=== PATIENT | male | born 1955 | race African-American/Black ===

== ENCOUNTER 2018-04-16 10:23 | Emergency (ER) | payer MEDICARE, MEDICAID ==
[~2018-04-16] VITALS: Ht 167.6 cm; Wt 81.6 kg
[2018-04-16] MEDS ORDERED: LACTULOSE20 GM/301 ORAL (12:07)
[2018-04-16] MEDS ORDERED: DOCUSATE SODIU100 MG ORAL (12:07)
[2018-04-16] MEDS ORDERED: TAMSULOSIN HCL0.4 MG ORAL (12:07)
[2018-04-16] MEDS ORDERED: PHENOBARBITAL30 MG ORAL (12:07)
[2018-04-16] MEDS ORDERED: FEROSUL325 M1 PO (12:07)
[2018-04-16] MEDS ORDERED: HYDROCHLOROTHIA25 MG ORAL (12:07)
[2018-04-16] MEDS ORDERED: ATENOLOL25 MG ORAL (12:07)
[2018-04-16] MEDS ORDERED: REGULOID POWDE369 GM PO (12:07)
[2018-04-16] MEDS ORDERED: OYSTER SHELL C500 MG PO (12:07)
[2018-04-16] MEDS ORDERED: KEPPRA500 M4 ORAL (12:07)
[2018-04-16] MEDS ORDERED: LISINOPRIL10 MG ORAL (12:07)
[2018-04-16] MEDS ORDERED: DILANTIN100 MG ORAL (12:07)
[2018-04-16] MEDS ORDERED: SIMVASTATIN20 MG ORAL (12:08)
--- NOTE | 2018-04-16 12:34 | Diagnostic Imaging Report ---
Indication: Pain left wrist pain Findings: 3 views of the left wrist were obtained. No acute fractures, malalignment, erosions or periostitis are identified. Soft tissues are unremarkable. Impression: No acute findings.
--- NOTE | 2018-04-16 12:37 | Diagnostic Imaging Report ---
Indication: . Left hand pain Findings: 3 views of the left hand were obtained. Normal alignment is demonstrated. No acute fractures, erosions, or periosteal reaction are seen. Soft tissues are unremarkable. There is joint space narrowing and osteophyte formation involving the interphalangeal joints of the fingers. Impression: No acute findings. Degenerative arthritis
[2018-04-16 12:40] VITALS: BP 129/87
[2018-04-16] MEDS ORDERED: TYLENOL EXTRA500 MG ORAL (12:40)
[2018-04-16 12:57] VITALS: BP 129/87
--- NOTE | 2018-04-17 07:09 | Emergency Room Report ---
History of Present Illness General Chief Complaint: Multiple Trauma/Fall Source: Family Member Present Illness HPI 63-year-old male presents ED for evaluation left hand swelling 1 day. Family member at bedside states that patient tripped and fell landing on the left hand. No head injury or LOC. Patient presenting with left wrist swelling. Patient nonverbal at baseline. Does not appear to be in distress as per family. No fevers or chills. Denies any other injuries. No other aggravating relieving factors. Denies any other associated symptoms Allergies: Coded Allergies: No Known Allergies (Unverified , 04/16/18) Patient History Past Medical History: none Past Surgical History: none Pertinent Family History: none Social History: Denies: smoking, alcohol use, drug use Immunizations: UTD Reviewed Nursing Documentation: PMH: Agreed; PSxH: Agreed Nursing Documentation-PMH Past Medical History: No History, Except For Review of Systems All Other Systems: limited Physical Exam Vital Signs Date Time Temp Pulse Resp B/P (MAP) Pulse Ox O2 Delivery O2 Flow Rate FiO2 04/16/18 10:35 97.8 86 16 135/85 100 Room Air 97.9 Sp02 EP Interpretation: reviewed, normal General Appearance: no apparent distress, GCS 15, non-toxic, other - nonverbal Head: normocephalic Eyes: bilateral eye normal inspection, bilateral eye PERRL ENT: normal ENT inspection Neck: normal inspection Respiratory: normal inspection Cardiovascular #1: normal inspection Gastrointestinal: normal inspection Rectal: deferred Genitourinary: no CVA tenderness Musculoskeletal: swelling - L hand Neurologic: other - nonverbal Psychiatric: other - nonverbal Skin: normal inspection Lymphatic: normal inspection Procedures Splinting Splinting : Consent: Verbal Pre-Made Type: velcro Splint: wrist Pre-Proc Neuro Vasc Exam: normal Post-Proc Neuro Vasc Exam: normal Patient Tolerated: Well Complications: None Medical Decision Making Diagnostic Impression: Primary Impression: Hand injury Qualified Codes: S69.92XA - Unspecified injury of left wrist, hand and finger( s), initial encounter ER Course Hospital Course 63-year-old M presents to ED complaining of L hand swelling s/p trip and fall Differential diagnoses include: Fracture, dislocation, sprain, contusion Clinical course Patient placed on stretcher. After initial history and physical, I ordered xrays of L hand/wrist Xrays prelim read shows no acute fracture/dislocation. placed in wrist splint Likely contusion. Discussed findings with family member. Recommend ice, Tylenol. close followup with PMD. Safe for discharge Diagnosis - hand injury Stable and discharged to home with prescription for Tylenol. apply ice, keep elevated. weight bear as tolerated. Followup with PMD. Return to ED if symptoms recur or worsen Other X-Ray Diagnostic Results Other X-Ray Diagnostic Results #1: X-Ray ordered: L hand # of Views/Limited Vs Complete: 3 View Indication: Pain EP Interpretation: Yes Interpretation: no dislocation, no soft tissue swelling, no fractures Impression: No acute disease Electronically Signed by: Electronically signed by Kenneth Lau MD Other X-Ray Diagnostic Results #2: X-Ray ordered: L wrist # of Views/Limited Vs Complete: 2 View Indication: Pain EP Interpretation: Yes Interpretation: no dislocation, no soft tissue swelling, no fractures Impression: No acute disease Electronically Signed by: Electronically signed by Kenneth Lau MD Last Vital Signs Date Time Temp Pulse Resp B/P (MAP) Pulse Ox O2 Delivery O2 Flow Rate FiO2 04/16/18 12:57 97.9 88 16 129/87 98 Room Air 97.9 Status: improved Disposition: HOME, SELF-CARE Condition: Stable Scripts Acetaminophen* (TYLENOL EXTRA STRENGTH*) 500 Mg Tablet 500 MG ORAL Q8H PRN for Prn Headache/Temp > 101, #30 TAB 0 Refills Prov: Kenneth Lau MD 04/16/18 Referrals: NOT CHOSEN IPA/,REFERRING Departure Forms: Return to School Return to School On: Apr 17, 2018 School Release Restrictions: None Patient Instructions: Hand Contusion, [id number] Kenneth Lau MD Apr 17, 2018 07:09
== END 2018-04-16 12:57 | disposition home or self-care (01) ==
LOC: EMR 11:18
DX: S69.92XA Unspecified injury of left wrist, hand and finger(s), initial encounter (principal); W01.0XXA Fall on same level from slipping, tripping and stumbling without subsequent striking against object, initial encounter; Y93.9 Activity, unspecified; Y92.9 Unspecified place or not applicable
CPT/HCPCS: 99284

== ENCOUNTER 2018-04-19 12:25 | Emergency (ER) | payer MEDICARE, MEDICAID ==
[~2018-04-19] VITALS: Ht 154.9 cm; Wt 81.6 kg
[~2018-04-19 12:25] MED LIST: ATENOLOL25 MG ORAL; DILANTIN100 MG ORAL; DOCUSATE SODIU100 MG ORAL; FEROSUL325 M1 PO; HYDROCHLOROTHIA25 MG ORAL; KEPPRA500 M4 ORAL; LACTULOSE20 GM/301 ORAL; LISINOPRIL10 MG ORAL; OYSTER SHELL C500 MG PO; PHENOBARBITAL30 MG ORAL; REGULOID POWDE369 GM PO; SIMVASTATIN20 MG ORAL; TAMSULOSIN HCL0.4 MG ORAL; TYLENOL EXTRA500 MG ORAL
[2018-04-19 12:48] VITALS: BP 116/77
--- NOTE | 2018-04-19 13:23 | Emergency Room Report ---
History of Present Illness General Chief Complaint: Dyspnea/Respdistress Source: Caregiver Present Illness HPI Patient is a 63-year-old male brought in by caregiver after increased bruising to his left upper extremity and chest. Patient recent fall. Patient had recent imaging of his left hand which showed no evidence of fracture. The patient was noted to have been recently examined by his physician and was sent to the hospital for further evaluation and treatment. Allergies: Coded Allergies: No Known Allergies (Unverified , 04/19/18) Patient History Reviewed Nursing Documentation: PMH: Agreed; PSxH: Agreed Nursing Documentation-PMH Past Medical History: No History, Except For Hx Hypertension: Yes - High Cholesterol Review of Systems All Other Systems: limited - by mental status Physical Exam Vital Signs Date Time Temp Pulse Resp B/P (MAP) Pulse Ox O2 Delivery O2 Flow Rate FiO2 04/19/18 12:38 98.6 115 18 137/87 91 Room Air 98.6 General Appearance: no apparent distress, alert, Chronically Ill Head: normocephalic, atraumatic ENT: hearing grossly normal, normal voice Neck: supple, limited range of motion Respiratory: no respiratory distress, speaking full sentences Musculoskeletal: no calf tenderness Neurologic: alert, responsive, other - left hand swelling Psychiatric: mood/affect normal Skin: normal inspection, other - bruising to left chest wall and upper arm Medical Decision Making Diagnostic Impression: Primary Impression: Contusion, chest wall Additional Impression: Proximal humerus fracture ER Course Patient presented after a recent fall. Differential diagnosis included was not limited to fracture, pneumothorax, humerus fracture, head injury among others.Because of complexity of patient's case imaging studies were ordered. X-ray of the left humerus showed minimally displaced comminuted proximal humerus fracture. CT the chest read by radiology showed no evidence of acute fracture or pneumothorax. The patient was placed in a sling. He is given prescription for pain medications. His caregiver was advised to have the patient follow-up with orthopedics for reevaluation and treatment. Last Vital Signs Date Time Temp Pulse Resp B/P (MAP) Pulse Ox O2 Delivery O2 Flow Rate FiO2 04/19/18 12:48 98.6 104 25 116/77 99 Room Air 98.6 Status: improved Disposition: HOME, SELF-CARE Condition: Stable Scripts Ibuprofen (Ibuprofen) 400 Mg Tablet 400 MG PO EVERY 8 HOURS, #20 TAB Prov: Donnie Chavez MD 04/19/18 Referrals: NON PHYSICIAN (PCP) Donnie Chavez MD Apr 19, 2018 13:23
--- NOTE | 2018-04-19 14:02 | Diagnostic Imaging Report ---
EXAM: XR Left Humerus, 2 or More Views CLINICAL HISTORY: PAIN TECHNIQUE: Frontal and lateral views of the left humerus. COMPARISON: No relevant prior studies available. FINDINGS: Bones/joints: Minimally displaced comminuted fracture of the left humerus neck. Soft tissues: Unremarkable. IMPRESSION: Minimally displaced comminuted fracture of the left humerus neck.
[2018-04-19] MEDS ORDERED: IBUPROFEN400 M1 PO (14:29)
[2018-04-19 14:45] VITALS: BP 123/87
--- NOTE | 2018-04-19 14:58 | Diagnostic Imaging Report ---
EXAM: CT Chest Without Intravenous Contrast CLINICAL HISTORY: CP TECHNIQUE: Axial computed tomography images of the chest without intravenous contrast. CTDI is 29.72 mGy and DLP is 793 mGy-cm. One or more of the following dose reduction techniques were used: automated exposure control, adjustment of the mA and/or kV according to patient size, use of iterative reconstruction technique. COMPARISON: No relevant prior studies available. FINDINGS: Lungs: Unremarkable. No mass. No consolidation. Pleural space: Unremarkable. No pneumothorax. No effusion. Heart: Unremarkable. No cardiomegaly. No pericardial effusion. Bones/joints: Mildly displaced comminuted fracture of the left humerus neck. Possible nondisplaced fracture of the anterolateral aspect of the left 3rd and 4th ribs. No dislocation. Soft tissues: Mild subcutaneous soft tissue stranding in the left anterior lateral chest. Vasculature: Unremarkable. No thoracic aortic aneurysm. Lymph nodes: Unremarkable. No enlarged lymph nodes. Liver: Nonspecific subcentimeter hepatic hypodensities, possibly small simple cysts. IMPRESSION: 1. Mildly displaced comminuted fracture of the left humerus neck. 2. Possible nondisplaced fractures of the anterolateral aspect of the left 3rd and 4th ribs. 3. Subcutaneous soft tissue stranding in the left anterior lateral chest. 4. Nonspecific subcentimeter hepatic hypodensities, possibly small simple cysts.
== END 2018-04-19 14:45 | disposition home or self-care (01) ==
LOC: EMR 13:16
DX: S20.212A Contusion of left front wall of thorax, initial encounter (principal); S42.292A Other displaced fracture of upper end of left humerus, initial encounter for closed fracture; W19.XXXA Unspecified fall, initial encounter; Y92.9 Unspecified place or not applicable; I10 Essential (primary) hypertension; E78.00 Pure hypercholesterolemia, unspecified
CPT/HCPCS: 71250; 99284

== ENCOUNTER 2019-08-15 08:39 | Emergency (ER) | payer MEDICARE, MEDICAID ==
[~2019-08-15] VITALS: Ht 165.1 cm; Wt 81.6 kg
[~2019-08-15 08:39] MED LIST changes: +IBUPROFEN400 M1 PO
[2019-08-15 08:43] VITALS: BP 126/82
[2019-08-15 09:00] VITALS: BP 120/83
--- NOTE | 2019-08-15 09:00 | NUR ---
ED Nurse Note: Pt brought into ER w/ c/o bilateral lower leg blisters. Pt has non-pitting edema bilteral lower legs, dark discolration, and blisters with scant serous discharge on L leg. Pt is alert and orientedx1. Pt has learning disbality. Caregiver present.
--- NOTE | 2019-08-15 09:01 | Emergency Room Report ---
History of Present Illness General Chief Complaint: Skin Rash/Abscess Source: Significant Other Present Illness HPI Patient presents with scratch polisher with reports of evidence of blister formation left anterior tibial area Patient himself has underlying significant medical condition is not appropriate historian However this area was noticed earlier today Patient presents to the ER he has been following appropriately with his primary physician saw him last week There has been no complaints of chest pain or shortness of breath there was no other complaints of vomiting or diarrhea or recent trauma Allergies: Coded Allergies: No Known Allergies (Unverified , 04/19/18) Patient History Limited by: medical condition Past Medical History: see triage record Reviewed Nursing Documentation: PMH: Agreed; PSxH: Agreed Nursing Documentation-PMH Past Medical History: No History, Except For Hx Cardiac Problems: No - bipolar, mental retardation Hx Hypertension: Yes - High Cholesterol Review of Systems All Other Systems: negative except mentioned in HPI Physical Exam Vital Signs Date Time Temp Pulse Resp B/P (MAP) Pulse Ox O2 Delivery O2 Flow Rate FiO2 08/15/19 08:43 98.1 75 19 126/82 (97) 99 Room Air Sp02 EP Interpretation: reviewed, normal General Appearance: well appearing, no apparent distress Head: normocephalic, atraumatic Eyes: bilateral eye PERRL ENT: EOM grossly intact, normal pharynx Neck: supple Respiratory: lungs clear, no respiratory distress, no retraction Cardiovascular #1: regular rate, rhythm Gastrointestinal: non tender, soft Musculoskeletal: other - Patient has venous stasis and dependent edema both lower extremities otherwise ambulating without focal deficit Neurologic: alert, responsive Skin: other - Evidence of venous stasis, patient also has edema both lower extremities, there is a small blister formation approximately half centimeter in the mid anterior tibial region, the area is opened and there is a small amount of serosanguineous fluid that is expelled from the area Lymphatic: no adenopathy Medical Decision Making Diagnostic Impression: Primary Impression: Venous stasis Additional Impressions: Edema Blister ER Course The area in question and the findings are consistent with a small blister formation that has already started to resolve Likely secondary to venous stasis and edema There are no signs of any secondary infectious process I discussed with the scratch polisher regarding pressure stockings elevation of the legs And discussion with primary physician regarding diuretics And patient will have close outpatient follow-up Last Vital Signs Date Time Temp Pulse Resp B/P (MAP) Pulse Ox O2 Delivery O2 Flow Rate FiO2 08/15/19 08:43 98.1 75 19 126/82 (97) 99 Room Air Status: improved Disposition: HOME, SELF-CARE Condition: Improved Additional Instructions: Patient is provided with the discharge instructions notified to follow up with primary doctor in the next 2-3 days otherwise return to the er with any worsening symptoms. Please note that this report is being documented using [employer] technology. This can lead to erroneous entry secondary to incorrect interpretation by the dictating instrument. Gabriel Chong DO Aug 15, 2019 09:01
[2019-08-15] MEDS ORDERED: compression stocking (09:03)
[2019-08-15] MEDS ORDERED: [UNRECOGNIZED DRUG - OTHER] (09:03)
--- NOTE | 2019-08-15 09:15 | NUR ---
ER DISCHARGE NOTE: Patient is cleared to be discharged per ERMD, pt is aox1, on room air, with stable vital signs. caregiver was given dc and prescription instructions, pt was able to verbalize understanding, pt id band removed. pt is able to ambulate with steady gait. pt took all belongings.
== END 2019-08-15 09:15 | disposition home or self-care (01) ==
LOC: EMR 09:15
DX: I87.8 Other specified disorders of veins (principal); R60.0 Localized edema; S80.822A Blister (nonthermal), left lower leg, initial encounter; X58.XXXA Exposure to other specified factors, initial encounter; Y92.9 Unspecified place or not applicable; E78.00 Pure hypercholesterolemia, unspecified
CPT/HCPCS: 99281